=== PATIENT | female | born 1975 | race Caucasian/White ===

== ENCOUNTER 2017-08-15 00:47 | Emergency (ER) | payer MEDICAID ==
[~2017-08-15] VITALS: Ht 167.6 cm; Wt 56.8 kg
[2017-08-15] MEDS ORDERED: sulfamethoxazole/trimethoprim DS (800/160mg) tablet PO ONE (00:55)
[2017-08-15] MEDS ORDERED: ketorolac trometh inj. 60 MG/2 ML VIAL IM ONE (00:55)
[2017-08-15] MEDS ORDERED: cephalexin 250mg capsule PO ONE (00:55)
[2017-08-15] MEDS ORDERED: ondansetron 4mg rapidly disintigrating tab PO ONE (01:00)
[2017-08-15] MEDS ORDERED: DOXY100C43 PO (01:25)
[2017-08-15] MEDS ORDERED: NAPR-1154 PO (01:25)
[2017-08-15 02:00] VITALS: BP 126/80
== END 2017-08-15 02:02 | disposition home or self-care (01) ==
LOC: ER 00:48
DX: L03.113 Cellulitis of right upper limb (principal); M25.552 Pain in left hip; M25.562 Pain in left knee; G89.29 Other chronic pain; Z88.8 Allergy status to other drugs, medicaments and biological substances
CPT/HCPCS: 72170; 96372; 99284; J1885

== ENCOUNTER 2017-08-17 10:43 | Emergency (ER) | payer MEDICAID, OTHER ==
[~2017-08-17] VITALS: Ht 165.1 cm; Wt 5.2 kg
[~2017-08-17 10:43] MED LIST: DOXY100C43 PO; NAPR-1154 PO
[2017-08-17] MEDS ORDERED: mupirocin 2% ointment 22GM TP STA (11:40)
[2017-08-17] MEDS ORDERED: NORG1TAB PO (11:51)
[2017-08-17] MEDS ORDERED: TRAM50TA2 PO (11:51)
[2017-08-17] MEDS ORDERED: acetaminophen w/codeine (30MG) #3 tablet PO ONE (12:15)
[2017-08-17] MEDS ORDERED: ACET1TAB12 PO (12:46)
[2017-08-17 12:52] VITALS: BP 115/65
== END 2017-08-17 13:00 | disposition home or self-care (01) ==
LOC: ER 10:44
DX: Z76.0 Encounter for issue of repeat prescription (principal); S60.512A Abrasion of left hand, initial encounter; S60.511A Abrasion of right hand, initial encounter; X58.XXXA Exposure to other specified factors, initial encounter; Y93.89 Activity, other specified; Y92.89 Other specified places as the place of occurrence of the external cause; Y99.8 Other external cause status
CPT/HCPCS: 99283

== ENCOUNTER 2017-08-24 16:04 | Emergency (ER) | payer MEDICAID, OTHER ==
[~2017-08-24] VITALS: Ht 180011.9 cm; Wt 56.4 kg
[~2017-08-24 16:04] MED LIST changes: +ACET1TAB12 PO; +NORG1TAB PO
[2017-08-24] MEDS ORDERED: [UNRECOGNIZED DRUG - REMARK] PO (17:31)
[2017-08-24] MEDS ORDERED: ERGO1TAB30 PO (17:31)
[2017-08-24] MEDS ORDERED: LORazepam 1 MG tablet PO ONE (17:40)
[2017-08-24] MEDS ORDERED: pantoprazole 40mg Tablet.DR PO SCH (17:40)
[2017-08-24] MEDS ORDERED: pantoprazole 40mg Tablet.DR PO ONE (17:40)
[2017-08-24 17:48] LABS: URINE HCG NEGATIVE (NEG)
[2017-08-24] MEDS ORDERED: NORG1TAB PO (17:53)
[2017-08-24] MEDS ORDERED: IBUP-1984 PO ×2 (17:54→17:57)
[2017-08-24] MEDS ORDERED: DOXY100C2 PO (17:54)
[2017-08-24 17:58] LABS: BASOPHILS % (AUTO) 0.4 % (0-1); EOSINOPHILS # (AUTO) 0.3 X10'3 (0-0.9); EOSINOPHILS % (AUTO) 2.3 % (0-6); LYMPHOCYTES # (AUTO) 3.6 X10'3 (1.1-4.8); LYMPHOCYTES % (AUTO) 29.3 % (21-51); MEAN CORPUSCULAR HEMOGLOBIN 31.4 PG (27.0-31.0); MEAN CORPUSCULAR HGB CONC 33.2 % (33.0-36.5); MEAN CORPUSCULAR VOLUME 94.5 FL (78-98); MEAN PLATELET VOLUME 8.1 FL (7.4-10.4); MONOCYTES # (AUTO) 0.8 X10'3 (0-0.9); MONOCYTES % (AUTO) 6.3 % (2-12); NEUTROPHILS # (AUTO) 7.6 X10'3 (1.8-7.7); NEUTROPHILS % (AUTO) 61.7 % (42-75); PLATELET COUNT 520 X10'3 (140-440); RED BLOOD COUNT 3.49 X10'6 (4.20-5.60); RED CELL DISTRIBUTION WIDTH 12.8 % (11.5-14.5); WHITE BLOOD COUNT 12.4 X10'3 (4.5-11.0)
[2017-08-24 18:00] LABS: URINE AMPHETAMINE SCREEN NEGATIVE (Neg); URINE BARBITUATE SCREEN NEGATIVE (Neg); URINE BENZODIAZEPINES SCREEN NEGATIVE (Neg); URINE CANNABINOID SCREEN NEGATIVE (Neg); URINE COCAINE SCREEN NEGATIVE (Neg); URINE METHADONE SCREEN NEGATIVE (Neg); URINE OPIATE SCREEN NEGATIVE (Neg); URINE PHENCYCLIDINE SCREEN NEGATIVE (Neg)
[2017-08-24] MEDS: doxycycline hyclate 100mg tablet.DR PO SCH (18:10)
[2017-08-24 18:12] LABS: ALANINE AMINOTRANSFERASE 23 U/L (12-78); ALBUMIN 3.1 G/DL (3.4-5.0); ALBUMIN/GLOBULIN RATIO 1.1 (1.1-1.5); ALKALINE PHOSPHATASE 22 IU/L (46-116); ANION GAP 8 (8-16); ASPARTATE AMINO TRANSFERASE 14 U/L (10-37); BILIRUBIN,TOTAL 0.3 MG/DL (0.1-1.0); BLOOD UREA NITROGEN 24 MG/DL (7-18); CALCIUM 8.7 MG/DL (8.5-10.1); CHLORIDE 107 MMOL/L (99-107); ETHANOL < 0.010 GM/DL (0.0-0.010); GLUCOSE 106 MG/DL (70-104); POTASSIUM 3.9 MMOL/L (3.5-5.1); SODIUM 141 MMOL/L (135-145); TOTAL CARBON DIOXIDE 26.5 MMOL/L (24-32); TOTAL PROTEIN 5.9 G/DL (6.4-8.2); eGFR > 90 ML/MIN
[2017-08-24] MEDS: ibuprofen tablet 400 MG TABLET PO PRN (20:17)
[2017-08-25] MEDS: doxycycline hyclate 100mg tablet.DR PO SCH ×2 (07:50→20:16)
[2017-08-25] MEDS: ibuprofen tablet 400 MG TABLET PO PRN ×3 (07:50→20:16)
[2017-08-25] MEDS: LORazepam 1 MG tablet PO PRN ×2 (12:06→20:16)
[2017-08-25] MEDS ORDERED: acetaminophen w/codeine (30MG) #3 tablet PO ONE (12:45)
[2017-08-25] MEDS: lactobacillus rhamnosus 10,000 MMU CELLS/CAPSULE PO SCH (17:30)
[2017-08-25 19:35] LABS: CLARITY,URINE Clear (Clear); COLOR,URINE Yellow (Yellow); GLUCOSE, URINE Negative (Neg); KETONES,URINE Negative (Neg); LEUKOCYTE ESTERASE ,URINE Negative (Neg); NITRITES, URINE Negative (Neg); OCCULT BLOOD,URINE Negative (Neg); PH,URINE 5.5 (4.8-8.0); PROTEIN,URINE Negative (Neg); UROBILINOGEN,URINE 0.2 E.U/dL (0.2-1.0)
[2017-08-25 19:36] LABS: UA COLLECTION TYPE CLN CATCH MIDSTREAM
[2017-08-25] MEDS: ziprasidone 20mg capsule PO SCH (20:00)
[2017-08-25] MEDS ORDERED: ziprasidone IM 20mg inj **IM only IM ONE (20:00)
[2017-08-25] MEDS ORDERED: acetaminophen 325mg tablet PO SCH (22:30)
[2017-08-25] MEDS ORDERED: acetaminophen 325mg tablet PO PRN (22:40)
[2017-08-26] MEDS ORDERED: ziprasidone IM 20mg inj **IM only IM PRN (06:35)
[2017-08-26] MEDS: CAFFEINE PO PRN ×5 (07:00→10:33)
[2017-08-26] MEDS: ERGOTAMINE TARTRATE PO PRN ×5 (07:00→10:33)
[2017-08-26] MEDS: lactobacillus rhamnosus 10,000 MMU CELLS/CAPSULE PO SCH (07:33)
[2017-08-26] MEDS: doxycycline hyclate 100mg tablet.DR PO SCH (07:33)
[2017-08-26] MEDS: ziprasidone 20mg capsule PO SCH (08:00)
[2017-08-26] MEDS: LORazepam 1 MG tablet PO PRN (10:37)
[2017-08-26] MEDS: ibuprofen tablet 400 MG TABLET PO PRN (10:42)
[2017-08-26 11:54] VITALS: BP 95/55
== END 2017-08-26 12:06 ==
LOC: ER 16:05
DX: F41.9 Anxiety disorder, unspecified (principal)
CPT/HCPCS: 36415; 73140; 80053; 80305; 80320; 81003; 81025; 84443; 85025; 96372; 99285; J3486